=== PATIENT | male | born 1930 | race Caucasian/White ===

== ENCOUNTER → 2019-03-19 | Outpatient (CLI) | payer MEDICARE ==
--- NOTE | 2019-03-19 15:09 | RAD ---
EXAM: Right knee, 3 views. HISTORY: Strain. COMPARISON: None. FINDINGS: 3 views of the right knee are obtained. There is medial compartment joint space narrowing with subchondral sclerosis and marginal osteophytosis. There is mild lateral and patellofemoral compartment spurring. There is lateral compartment chondrocalcinosis. There is no significant joint effusion. There is a small corticated ossicle along the lateral tibial plateau, possibly due to a chronic fragmented osteophyte. There is also a small anterior intra-articular osteophyte. IMPRESSION: 1. Moderate to severe medial and mild lateral and patellofemoral compartment osteoarthritis of the right knee. 2. No acute osseous finding. Electronically signed by: Mariana Nj MD (03/19/2019 3:06 PM) [id number]
== END | disposition home or self-care (01) ==
LOC: RAD 14:46
PROVIDERS: ATTEND General Practice
DX: M17.11 Unilateral primary osteoarthritis, right knee (principal); M76.891 Other specified enthesopathies of right lower limb, excluding foot; M11.261 Other chondrocalcinosis, right knee; M25.761 Osteophyte, right knee
CPT/HCPCS: 73562